=== PATIENT | female | born 1995 | race Two or more races ===

== ENCOUNTER 2022-02-25 13:18 | Inpatient (IN) | payer OTHER ==
[~2022-02-25] VITALS: Ht 165.1 cm; Wt 88.5 kg
[~2022-02-25 13:18] MED LIST: CYCLOBENZAPRINE10 MG PO
[2022-02-25] MEDS ORDERED: SYNTHROID75 MCG PO (14:00)
== END 2022-02-26 13:41 | disposition home or self-care (01) | DRG 743 ==
LOC: CIR.AMB 13:18 → EDSTATUS 13:21 → CIR.AMB 13:22 → EDSTATUS 16:00 → OB/GYN 20:59
PROVIDERS: ADMIT Obstetrics & Gynecology; ATTEND Obstetrics & Gynecology
PROC: 0UDB7ZZ Extraction of Endometrium, Via Natural or Artificial Opening (ICD-10-PCS; 2022-02-25)
PROC: 0WJH4ZZ Inspection of Retroperitoneum, Percutaneous Endoscopic Approach (ICD-10-PCS; 2022-02-25)
PROC: 0DNE0ZZ Release Large Intestine, Open Approach (ICD-10-PCS; 2022-02-25)
PROC: 0UB00ZZ Excision of Right Ovary, Open Approach (ICD-10-PCS; principal; 2022-02-25 16:00)
DX: N83.511 Torsion of right ovary and ovarian pedicle (principal); Z20.822 Contact with and (suspected) exposure to COVID-19; N73.6 Female pelvic peritoneal adhesions (postinfective)